=== PATIENT | male | born 1970 | race Caucasian/White ===

== ENCOUNTER 2020-04-27 09:58 | Outpatient (CLI) | payer OTHER, SELFPAY ==
--- NOTE | ~2020-04-27 | MR_ITS ---
EXAMINATION: MR shoulder LT wo con DATE: 04/27/2020 11:06 INDICATION: Left shoulder pain TECHNIQUE: Magnetic resonance imaging (MRI) of the left shoulder was performed without intravenous co ntrast. Sequences included axial PD-weighted FS FSE, coronal oblique PD-weighted FS FSE, coronal obli que T2-weighted FS FSE, sagittal PD-weighted FS FSE, and sagittal T1-weighted SE. COMPARISON: Left shoulder radiographs dated 03/05/2020 FINDINGS: Coracoacromial arch: The acromion undersurface is curved in morphology (type II). Small anterior subacromial spurs at the acromial insertion of the coracoacromial ligament. Moderate acromioclavicular osteoarthritis with sma ll inferiorly directed osteophytes. There is prominent heterotopic ossification along the thickened c oracoclavicular ligament suggesting sequela of old ligament sprain. Linear surgical scar with several foci of susceptibility artifact in the subcutaneous tissues overlying the anterior acromion. There a ppear to be a few small suture anchor sites at the acromion and lateral clavicle suggesting prior rep air of an acromioclavicular joint separation which would account for the chronic coracoclavicular lig ament injury. Rotator cuff: Mild to moderate supraspinatus and infraspinatus tendinopathy. Small full-thickness tear measuring 8 mm AP and 1 cm medial collateral scarring at the distal aspect of the posterior supraspinatus tendon with mild partial-thickness articular sided tear extending an additional 6 mm posteriorly along the f ootplate of the conjoined portion of the supraspinatus and infraspinatus tendons. There is a small ga nglion cyst tracking medially along a small longitudinal split tear involving the distal fibers of th e infraspinatus tendon. The ganglion cyst increases to approximately 2 cm medial collateral, 2 cm crackling press operator niocaudal and 4 mm in maximal thickness terminating near the level of the glenoid. A likely torn port ion of the articular side of the tendon appears reflected back 1.7 cm laterally within the ganglion c yst. The teres minor tendon is normal. Moderate subscapularis tendinopathy without discrete tear. Nor mal rotator cuff muscle bulk and signal. Biceps tendon, glenoid labrum and glenohumeral cartilage: Long head of the biceps tendon is normal. Posterior superior glenoid labrum appears small but without discrete tear. There is a small tear at the 1:00 position of the anterior glenoid labrum slightly ce phalad to a normal small sublabral foramen. Glenohumeral cartilage is normal. Fluid: Very small glenohumeral joint effusion with small amount of fluid extending into the long head biceps tendon sheath as well as into the subacromial/subdeltoid bursa through the full-thickness rotator cu ff tear. No loose osteochondral bodies. Bones: Normal marrow signal with no edema, fracture or abnormal marrow replacing process. Suggestion of an a dditional possible suture anchor tract at the cephalad aspect of the lateral rim of the intertubercul ar groove. Alternatively this could represent a small vascular channel. IMPRESSION: 1. Postoperative changes of likely repair of a chronic acromioclavicular joint separation with associ ated coracoclavicular ligament injury with prominent heterotopic ossification along the coracoclavicu lar ligament. 2. Mild to moderate rotator cuff tendinopathy with small full-thickness tear of the distal supraspina tus tendon and small partial-thickness articular sided tear of the more posterior infraspinatus tendo n. 3. Small tear at the 1:00 position of the anterosuperior glenoid labrum. Reviewed, dictated and finalized at location A. TENANCE APPRENTICE IMPRESSION: 1. Postoperative changes of likely repair of a chronic acromioclavicular joint separation with associated coracoclavicular li
== END 2020-04-27 09:59 | disposition home or self-care (01) ==
LOC: ANHIMG 10:09
PROVIDERS: PCP Internal Medicine; Visit Provider Orthopaedic Surgery
DX: M25.512 Pain in left shoulder (principal); S43.432D Superior glenoid labrum lesion of left shoulder, subsequent encounter; X58.XXXD Exposure to other specified factors, subsequent encounter
CPT/HCPCS: 73221

== ENCOUNTER → 2020-08-14 03:04 | Outpatient (CLI) | payer OTHER, SELFPAY ==
[2020-08-14 19:50] LABS: SARS-CoV-2 RNA PCR Negative
== END ==
PROVIDERS: PCP Internal Medicine; Visit Provider Orthopaedic Surgery
DX: Z01.812 Encounter for preprocedural laboratory examination (principal); Z20.822 Contact with and (suspected) exposure to COVID-19
CPT/HCPCS: C9803; U0003; U0005

== ENCOUNTER 2020-08-17 00:57 | Day surgery (SDC) | payer OTHER, SELFPAY ==
[2020-08-07 08:24] VITALS: BMI 29.2
--- NOTE | 2020-08-14 12:43 | WPDANESEPPF ---
Anes - Initial Pre Proc Eval Procedure: Operation Date: 08/17/20 11:00 Proposed Procedures p Left Open Rotator Cuff Repair, Distal Clavicle Excision - Geraldo Tejada MD Date/Time: 08/14/20 12:43 Surgeon: Geraldo Tejada MD Pre Op Diagnosis: left rotator cuff tear, ac arthritis Patient Data Age: 50 Gender: M Height: 1.93 m Weight: 109.09 kg Allergies Allergy/AdvReac Type Severity Reaction Status Date / Time Penicillins Allergy Mild Unknown- Verified 08/07/20 08:21 A CHILD Home Medications Medication Instructions Recorded Confirmed Type testosterone cypionate 100 mg/mL 100 mg IM 3XW 02/06/20 08/07/20 History intramuscular oil valacyclovir 500 mg tablet See Rx Instructions .ROUTE 02/25/20 08/07/20 Rx .COMPLEX #30 tablet acetaminophen [Tylenol Arthritis 1,300 mg PO Q8H PRN 08/07/20 08/07/20 History Pain] Patient hx anesthesia problems: none Family hx anesthesia problems: none PMFSH Past Medical History Medical History (Updated 08/14/20 @ 12:45 by Michael Denney MD) 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 BMI 30.0-30.9,adult Long-term current use of testosterone replacement therapy Low testosterone Overweight (BMI 25.0-29.9) Subacromial impingement of left shoulder Venereal herpes Surgical History Surgical History H/O shoulder surgery 1989 for left AC separation H/O spinal fusion Previous back surgery 2012 spinal fusion c6-c7 S/P lateral meniscal repair Naz, unknown Family History Family History Father , Age 66 Cardiovascular Heart disease Social History Social History Smoking packs per day: 1 Smoking cigarettes per day: 20.0 Years smoked: 10 Smoking pack-years: 10.00 Smoking status: Former smoker Tobacco type: cigarettes Additional smoking assessment comments: QUIT 2006 Alcohol intake: current Drinks per week: 10 Substance use: never Substance use type: does not use 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 Questions were solicited and answers provided to the satisfaction of the patient/family/POA.
--- NOTE | 2020-08-14 12:45 | WPDANESPNB ---
Anes - Peripheral Nerve Block Date/Time: 08/14/20 12:45 I have discussed with the patient/family/POA the placement of a peripheral nerve block for post-operative pain management, including associated risks, benefits, complications, and side effects. Alternative methods of post-operative analgesia were detailed. Questions were solicited and answers provided to the satisfaction of the patient/family/POA. Time-Out: A pre-procedural Time-Out was completed immediately before starting the procedure and confirmed: Patient Identification, Site, Procedure, Patient Position and the Availability of Requisite Equipment. Clinical Indications: Acute post-operative pain management requested by the operative surgeon. Nerve Block Insertion Note Anes-nerve block: supraclavicular left Patient position: supine Skin prep: chlorhexidine Needle: 22 gauge, stimulating, insulated echogenic needle. Needle length: 80 mm Technique: ultrasound (in plane) Injectate: bupivacaine 0.5% with epi 5 mcg/ml (20cc) Observations: tolerated well Complications: none Procedure start time:: 1150 Procedure end time:: 1155
[2020-08-17] VITALS (8 sets, daily range): BP systolic 125–159; BP diastolic 61–105; PULSE 65–80; RESP 8–18; TEMP 36.2–36.6; O2SAT 95–100
[2020-08-17] MEDS: LACTATED RINGERS 1,000 ML 30 ML IV CONT ×2 (09:58→13:54)
[2020-08-17] MEDS: ACETAMINOPHEN 500 MG TABLET 1000 MG PO (10:01)
[2020-08-17] MEDS: KETOROLAC 15 MG/ML VIAL (*BKC) IV PUSH (10:02)
--- NOTE | 2020-08-17 11:28 | WPDHPUPDATE1 ---
History and Physical Update Update Date/Time: 08/17/20 11:28 History and Physical has been reviewed, including an updated exam of the patient. There are NO changes in the patient's condition. Risks, benefits, and alternatives have been discussed and questions answered. Patient agrees to proceed with procedure.
[2020-08-17] MEDS: ceFAZolin 2 GM/D5W 50 ML 2 GM/50 ML BAG IVPB (11:58)
[2020-08-17] MEDS: BUPIVACAINE/EPINEPHRINE 0.25% 10 ML VIAL INFILTRATE (13:11)
--- NOTE | 2020-08-17 13:41 | W.PM.PROC2 ---
Procedure Note - Detailed Date of Procedure 08/17/20 Pre-op Diagnosis left rotator cuff tear, ac arthritis Post-op Diagnosis same Procedure Performed Left shoulder rotator cuff repair with distal clavicle excision Surgeon Geraldo Tejada MD Library Sales Consultant Laure Sanderson Anesthesia general and regional Indications See H and P Description of Procedure Patient was identified and proper site identified. In the preop holding area the anesthesia team performed a left upper extremity block. He was then taken to the operating room and transferred to the or table taking care to pad the torso and extremities. After general anesthetic induction and intubation, he was put in a semi beach chair position in the usual manner for a left shoulder procedure. His head was secured taking care to neither rotate nor extend the head and neck. The left upper extremity was prepped and draped free in usual sterile fashion. The subcutaneous tissue in the area of the incision was injected with 10 cc of 0.25% Marcaine and epinephrine solution. An oblique anterior incision was made extending from the AC joint distally in line with the fibers of the deltoid. Subcutaneous tissue was sharply dissected down to the deltoid fascia. The deltoid was dissected off the anterior portion of the acromion in the distal end of the clavicle. A 2 cm split was made at the junction between the anterior and middle thirds of the deltoid. Using the microsagittal saw the last 8 mm of clavicle removed. The saw was also used to perform the acromioplasty and then the undersurface of the acromion was rasped smooth. Bursa was debrided off the rotator cuff allowing for inspection. The supraspinatus had erosive type tear. The edges of this were freshened up and the tuberosity prepared for the repair. The the tendon was brought back together in a [id number] fashion with 2. Ethibond suture in the 2. Ethibond were also used to secure to greater tuberosity through bony tunnels. This gave a bianchi repair which was stable as the shoulder was taken through range of motion. The wound was irrigated with sterile NaCl solution. The deltoid was repaired back to the acromion with 2. Ethibond suture passed through bone and the remainder of the deltoid repair carried out with 2. Vicryl. Subcutaneous tissue was reapproximated with 2. Strata fix and then tissue adhesive used for the skin. Sterile dressing was applied. There were no known intraoperative complications, and perioperative antibiotics were administered. Estimated Blood Loss 30 Drains No Packing No Pathology none sent Complications No immediate complications Condition stable Disposition PACU
== END 2020-08-17 15:49 | disposition home or self-care (01) ==
PROVIDERS: PCP Internal Medicine; Visit Provider Orthopaedic Surgery
PROC: (CPT 23420; principal; 2020-08-17 11:00)
DX: M75.102 Unspecified rotator cuff tear or rupture of left shoulder, not specified as traumatic (principal); M19.011 Primary osteoarthritis, right shoulder; Z87.891 Personal history of nicotine dependence; Z79.890 Hormone replacement therapy; G89.18 Other acute postprocedural pain
CPT/HCPCS: 64415; 23412; 23120; A4565; A9270; C9803; J0690; J1885; J2250; J3010; J7120; U0003; U0005

== ENCOUNTER 2020-11-04 08:15 | Outpatient (RCR) | payer OTHER, SELFPAY ==
[2020-08-19 12:32] VITALS: BP_SYST 30
--- NOTE | 2020-08-19 13:49 | PTOPEVAL ---
Thank you for referring Tadeo See to [facility].? The patient is scheduled to be seen for therapy? 2 x/week for 10 weeks. Please review, sign, date and return this plan of care LAITH. I agree with and certify that the following plan of care is medically necessary. 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 Subjective Information He reports he has been having Query Text:As Reported By Patient/ issues with left shoulder for Family years. He reached the point where he could not raise the left UE overhead. Reports increased pain and difficulty sleeping since surgery. States he is not able to sleep in the bed due to pain. He requires assistance with ADL's. He is wearing the sling only when going outside of the house. He stopped lifting weights in due to shoulder limitations. Pain Assessment Self Report Pain Assessment Left Shoulder(s) Reported Pain Level 7 Pain Description Aching,Pulling,Tender on Palpation Pain Frequency Acute,Continuous Lowest Pain Intensity 7 Greatest Pain Intensity 10 Pain Aggravating Factors ADL's,Exercise/Activity, Procedure or Surgery Pain Behaviors None Upper Extremity Range of Motion Scapular/ Shoulder Range of Motion Left Shoulder Flexion - Passive 20 Shoulder Abduction - Passive 30 Shoulder Medial Rotation - Passive 50 Shoulder Lateral Rotation - Passive 0 Scapular/Shoulder Range of Motion Edema,Pain,Soft Tissue Limitations Restriction Scapular/Shoulder Range of Motion rotation measured with GH at Comments neutral Elbow/Forearm Range of Motion Left Elbow Flexion - Active 115 Elbow Extension - Active -18 Elbow/Forearm Range of Motion Edema,Soft Tissue Restriction
[2020-09-23 13:07] VITALS: BP_SYST 150
--- NOTE | 2020-10-29 11:47 | PTOPEVAL ---
Physical therapy progress note Thank you for referring Tadeo See to [facility].? Tadeo has attended 19 therapy visits to address UE limitations from surgery. He demonstrates improved UE motion, strength and function. He would benefit from additional skilled therapy services to progress and finalize HEP for strengthening to allow him to return to all normal work and daily task. The patient is scheduled to be seen for therapy?1x/week for 4 weeks. Please review, sign, date and return this plan of care LAITH. I agree with and certify that the following plan of care is medically necessary. 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 Subjective Information He is performing his HEP 1-2x/ Query Text:As Reported By Patient/ day. Denies any significant Family problems with sleeping with stiffness in the morning vs pain. He has returned to work, but mainly desk work vs lifting. He has always had difficulty reaching behind his back due to tightness. Pain Assessment Self Report Self Report Pain Level 0 Pain Score Pain Score 0: Self Report Upper Extremity Range of Motion Scapular/ Shoulder Range of Motion Left Shoulder Flexion - Active 160 Shoulder Flexion - Passive 165 Shoulder Extension - Active 52 Shoulder Abduction - Active 160 Shoulder Medial Rotation - Active 73 Shoulder Medial Rotation - Active L2t:Reach Behind the Back Shoulder Lateral Rotation - Active 70 Shoulder Lateral Rotation - Active C7:Reach Behind the Head Scapular/Shoulder Range of Motion Soft Tissue Restriction Limitations Scapular/Shoulder Range of Motion rotation measured with GH Comments abducted 90 dg Elbow/Forearm Range of Motion Left Elbow Flexion - Active 130 Elbow Extension - Active -10 Elbow/Forearm Range of Motion Soft Tissue Restriction Limitations Elbow/Forearm Range of Motion Comments tightness of bicep muscle Upper Extremity Muscle Strength Testing Scapular/Shoulder Left Scapular Retraction - Middle Trapezius 4- Good - Scapular Retraction - Lower Trapezius 3- Fair - Shoulder Flexion Strength 4 Good Shoulder Extension Strength 5 Normal Shoulder Abduction Strength 5 Normal Shoulder Medial Rotation Strength 5 Normal Shoulder Lateral Rotation Strength 4- Good - Elbow/Forearm Right Elbow Flexion Strength 5 Normal Elbow Extension Strength 5 Normal Forearm Pronation Strength 5 No
--- NOTE | 2020-11-11 07:06 | PCPTNOTE ---
Patient called & cancelled scheduled appointment this date due to had surgery. No additional appointments scheduled at this time.
--- NOTE | 2021-01-08 15:39 | PCPTNOTE ---
Admitting Provider: Attending Provider: Geraldo Tejada MD Patient:Tadeo See Date of :1970 Discharge Summary Patient has not returned for any further treatments since 11/04/2020, therefore he will be discharged at this time. Patient?s initial visit was on 08/19/2020 12:30 and he had a total of 20 visits. The goals have been met at this time. Thank you for referring this patient to [facility]. Please review, sign, date and return this discharge summary LAITH. I have been updated about the patient's current status and I agree with discharge from the above service at this time. Referring Physician Date
== END 2020-11-17 23:59 | disposition home or self-care (01) ==
LOC: ANHPT 08:15
PROVIDERS: PCP Internal Medicine; Visit Provider Orthopaedic Surgery
DX: Z47.89 Encounter for other orthopedic aftercare (principal)
CPT/HCPCS: 97014; 97110; 97140; 97162; G0283

== ENCOUNTER 2020-11-06 18:12 | Observation (INO) | payer OTHER, SELFPAY ==
--- NOTE | ~2020-11-06 | CT_ITS ---
EXAMINATION: CT abdomen pelvis w con DATE: 11/06/2020 19:15 INDICATION: Mid abdominal pain. TECHNIQUE: Computed tomography (CT) of the abdomen and pelvis was performed with 100 mL Omnipaque 350 intravenous contrast. Automated exposure control and iterative reconstruction technique were employe d. The dose-length product was 818.80 mGy-cm. COMPARISON: None. FINDINGS: The visualized portions of the lung bases demonstrate mild atelectasis. No pleural effusion . The heart size is normal. No pericardial effusion. The liver and gallbladder are normal. Calcificat ions in the spleen are consistent with old granulomatous disease. The pancreas, adrenal glands, and l eft kidney are normal. There is a 9 mm cyst in right kidney. There is an appendicolith in the appendi x, which is fluid-filled and dilated to 1.6 cm with adjacent fat stranding, consistent with appendici tis. There are no pathologically enlarged lymph nodes. There is prominent fat in the left inguinal ca nal that may be a hernia. There is no free intraperitoneal fluid. There is moderate lumbar spondylosi s. IMPRESSION: 1. Acute appendicitis. I called this result to Dr. Gomez. Reviewed, dictated and finalized at location A.
[2020-11-06 18:19] VITALS: BP 169/102; PULSE 67; RESP 16; TEMP 36.1; O2SAT 100
--- NOTE | 2020-11-06 18:24 | ED.ABDPAIN ---
HPI - Abdominal Pain General Chief Complaint: Abdominal Pain Stated Complaint: ABD Pain Time Seen by Provider: 11/06/20 18:16 Source: RN notes reviewed History of Present Illness HPI narrative: Patient presents emergency department from home for dental pain. Patient states that pain began approximately noon today. States he had eaten [employer] pizza for lunch and following this began to have an upset stomach so that time he tried to have a bowel movement was unsuccessful as had increasing pain described as a cramping in his lower abdomen he states is associated with nausea he denies any fevers or chills vomiting diarrhea or any other symptoms states he not taking medication for pain at home Related Data Home Medications Medication Instructions Recorded Confirmed testosterone cypionate 100 mg/mL 100 mg IM 3XW 02/06/20 09/29/20 intramuscular oil Allergies Allergy/AdvReac Type Severity Reaction Status Date / Time Penicillins Allergy Mild Unknown- Verified 08/17/20 10:32 A CHILD Review of Systems Review of Systems: Gen.: Denies fevers or chills ENT: Denies congestion Respiratory: Denies shortness of breath or cough CV: Denies chest pain or palpitations GI: Dsee HPI denies burning, urgency, frequency or hematuria Musculoskeletal: Denies back pain or muscle pain Neuro: Denies numbness, tingling, weakness or focal weakness Skin: Denies rash Except as documented, all other systems reviewed and negative [facility] Past Medical History Medical History 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 BMI 30.0-30.9,adult Long-term current use of testosterone replacement therapy Low testosterone Overweight (BMI 25.0-29.9) Subacromial impingement of left shoulder Venereal herpes Surgical History Surgical History H/O shoulder surgery 1989 for left AC separation H/O spinal fusion Left rotator cuff tear Left rotator cuff repair with distal clavicle excision August 17, 2020 Previous back surgery 2012 spinal fusion c6-c7 S/P lateral meniscal repair Naz, unknown Family History Family History Father , Age 66 Cardiovascular Heart disease Social History Social History Smoking packs per day: 1 Smoking cigarettes per day: 20.0 Years smoked: 10 Smoking pack-years: 10.00 Smoking status: Former smoker Tobacco type: cigarettes Additional smoking assessment comments: QUIT 2006 Alcohol intake: current Drinks per week: 10 Alcohol use details: 10 beers weekly Substance use: never Substance use type: does not use 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 No clubbing, cyanosis or edema. NEURO: Awake and alert. Following commands, speech normal, no focal deficits SKIN:: Warm, dry. Normal Color PSYCHIATRIC: Normal affect/mood Course Course Emergency Course: Discussed with Dr. Byrnes presentation work-up agrees with admission at this time Discussed with patient and family results of workup and diagnosis. Discussed need for admission. Patient and family understand and agree to current treatment plan Vital Signs Vital signs: Vital Signs Temperature 97.0 F L 11/06/20 18
[2020-11-06 18:45] LABS: Basophils Percent Auto 0.3 % (0.2-1.2); Hematocrit 54.2 % (42.0-52.0); Hemoglobin 18.4 g/dL (14.0-18.0); Immature Granulocyte Absolute 0.07 K/mm3 (0.00-0.031); Immature Granulocyte Percent A 0.5 % (0-0.5); Lymphocytes Absolute Auto 1.46 K/mm3 (0.9-3.2); Lymphocytes Percent Auto 9.6 % (18.3-44.2); Mean Corpuscular HGB Conc 33.9 g/dl (32-36); Mean Corpuscular Hemoglobin 32.7 pg (26-34); Mean Corpuscular Volume 96.3 fl (80-100); Mean Platelet Volume 10.8 fl (7.4-10.4); Monocytes Absolute Auto 0.8 K/mm3 (0.1-0.6); Neutrophils Absolute Auto 12.8 K/mm3 (1.3-6.7); Neutrophils Percent Auto 84.6 % (45.5-73.1); Platelet Count Result 169 k/mm3 (150-375); Red Blood Count 5.63 M/mm3 (4.6-6.20); Red Cell Distribution Width 12.5 % (11.5-14.5); White Blood Count 15.1 K/mm3 (4.5-10.0)
[2020-11-06] MEDS: KETOROLAC 30 MG/ML VIAL (*BKC) IV PUSH (18:53)
[2020-11-06] MEDS: ONDANSETRON INJ 4 MG/2 ML VIAL IV PUSH (18:54)
[2020-11-06] MEDS: SODIUM CHLORIDE 0.9% IV 1,000 ML 999 ML IV CONT (18:54)
[2020-11-06 18:57] LABS: Alanine Aminotransferase 62 U/L (4-50); Albumin Level 4.6 g/dL (3.5-5.1); Alkaline Phosphatase 80 U/L (38-126); Anion Gap 8 mmol/L (8-16); Aspartate Amino Transferase 45 U/L (17-59); Bilirubin,Total 0.7 mg/dL (0.2-1.3); Blood Urea Nitrogen 11 mg/dL (9-20); Calcium 9.7 mg/dL (8.4-10.2); Carbon Dioxide 26 mmol/L (22-30); Chloride 99 mmol/L (98-107); Estimated CRCL calculation 118 ml/min; Estimated Glomerular Filt Rate > 60; Glucose 133 mg/dL (65-110); Lipase 63 U/L (23-300); Potassium 4.2 mmol/L (3.4-5.0); Sodium 133 mmol/L (137-145)
[2020-11-06 19:11] LABS: Add Urine Microscopic? YES; Appearance Urine Clear (Clear); Bilirubin Urine Negative (Negative); Blood Urine Negative (Negative); Color Urine Yellow (Yellow); Glucose Urine UA 1+ mg/dL (Negative); Ketones Urine 1+ mg/dL (Negative); Leukocyte Esterase Ur Negative LEU/UL (Negative); Mucus Urine Rare /lpf; Nitrate Urine Negative (Negative); Protein Urine 1+ mg/dL (Negative); RBC Urine 0-2 /hpf (0-2); Specific Grav Ur 1.023 (1.001-1.035); Urobilinogen Urine Negative mg/dL (<2.0); WBC Urine 0-3 /hpf
--- NOTE | 2020-11-06 20:24 | WPDANESEPP ---
Anes - Eval Pre Procedure Procedure: Laparoscopic appendectomy Date/Time: 11/06/20 20:24 Surgeon: Soniya Preop Diagnosis: Acute appendicitis Pre Op Diagnosis: ABD Pain Patient Data Age: 50 Gender: M Height: 1.93 m Weight: 113.6 kg Last Vital Signs Temp 97.0 F L 11/06/20 18:19 Pulse 67 11/06/20 18:19 Resp 16 11/06/20 18:19 BP 169/102 H 11/06/20 18:19 Pulse Ox 100 11/06/20 18:19 Allergies Allergy/AdvReac Type Severity Reaction Status Date / Time Penicillins Allergy Mild Unknown- Verified 08/17/20 10:32 A CHILD Home Medications Medication Instructions Recorded Confirmed Type testosterone cypionate 100 mg/mL 100 mg IM 3XW 02/06/20 09/29/20 History intramuscular oil valacyclovir 500 mg tablet See Rx Instructions .ROUTE 08/21/20 09/29/20 Rx .COMPLEX #30 tablet Laboratory Tests 11/06/20 11/06/20 11/06/20 18:25 18:25 18:25 WBC 15.1 K/mm3 H K/mm3 (4.5-10.0) RBC 5.63 M/mm3 M/mm3 (4.6-6.20) Hgb 18.4 g/dL H g/dL (14.0-18.0) Hct 54.2 % H % (42.0-52.0) MCV 96.3 fl fl (80-100) MCH 32.7 pg pg (26-34) MCHC 33.9 g/dl g/dl (32-36) RDW 12.5 % % (11.5-14.5) Plt Count 169 k/mm3 k/mm3 (150-375) MPV 10.8 fl H fl (7.4-10.4) Immature Gran % (Auto) 0.5 % % (0-0.5) Neut % (Auto) 84.6 % H % (45.5-73.1) Lymph % (Auto) 9.6 % L % (18.3-44.2) [place] % (Auto) 5.0 % % (2.6-8.5) Eos % (Auto) 0.0 % % (0-4.4) Baso % (Auto) 0.3 % % (0.2-1.2) Lymph # (Auto) 1.46 K/mm3 K/mm3 (0.9-3.2) Tyler # (Auto) 0.8 K/mm3 H K/mm3 (0.1-0.6) Eos # (Auto) 0.0 K/mm3 K/mm3 (0-0.3) Baso # (Auto) 0.0 K/mm3 K/mm3 (0.0-0.1) Abs Immat Gran (auto) 0.07 K/mm3 H K/mm3 (0.00-0.031) Absolute Neuts (auto) 12.8 K/mm3 H K/mm3 (1.3-6.7) Absolute Nucleated RBC 0.0 K/mm3 K/mm3 (0.0-0.012) Nucleated RBC % 0.0 % % (0.0-0.2) Sodium 133 mmol/L L mmol/L (137-145) Potassium 4.2 mmol/L mmol/L (3.4-5.0) Chloride 99 mmol/L mmol/L (98-107) Carbon Dioxide 26 mmol/L mmol/L (22-30) Anion Gap 8 mmol/L mmol/L (8-16) BUN 11 mg/dL mg/dL (9-20) Creatinine 0.90 mg/dL mg/dL (0.7-1.3) Estim Creat Clear Calc 118 ml/min ml/min Estimated GFR > 60 (59 - ) Glucose 133 mg/dL H mg/dL (65-110) Calcium 9.7 mg/dL mg/dL (8.4-10.2) Total Bilirubin 0.7 mg/dL mg/dL (0.2-1.3) AST 45 U/L U/L (17-59) ALT 62 U/L H U/L (4-50) Alkaline Phosphatase 80 U/L U/L (38-126) Total Protein 8.0 g/dL g/dL (6.3-8.2) Albumin 4.6 g/dL g/dL (3.5-5.1) Lipase 63 U/L U/L (23-300) Urine Color Yellow (Yellow) Urine Appearance Clear (Clear) Urine pH 5.0 (5.0-9.0) Ur Specific [place] 1.023 (1.001-1.035) Urine Protein 1+ mg/dL H mg/dL (Negative) Urine Glucose (UA) 1+ mg/dL H mg/dL (Negative) Urine Ketones 1+ mg/dL H mg/dL (Negative) Ur Blood (Man) Negative (Negative) Urine Nitrate Negative (Negative) Urine Bilirubin Negative (Negative) Urine Urobilinogen Negative mg/dL mg/dL (<2.0) Leukocyte Esterase Rfl Negative MARIALUISA/UL MARIALUISA/UL (Negative) Urine RBC 0-2 /hpf /hpf (0-2) Urine WBC 0-3 /hpf /hpf Urine Mucus Rare /lpf /lpf Patient hx anesthesia problems: none Family hx anesthesia problems: none [facility] Past Medical History Medical History (Updated 11/06/20 @ 20:27 by Jaylen Dumont CRNA) 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 BMI 30.0-30.9,adult BPV (benign positional vertigo) H/O ETOH abus
[2020-11-06 21:25] VITALS: BP 152/87; PULSE 84; RESP 16; TEMP 37.1; O2SAT 100; BMI 29.9
[2020-11-06 21:45] VITALS: BMI 29.9
[2020-11-06] MEDS: metroNIDAZOLE 500 MG/ISO 100ML 500 MG/100 ML BAG 100 MG IVPB (22:20)
[2020-11-06] MEDS: SODIUM CHLORIDE 0.9% IV 1,000 ML 125 ML IV CONT (22:20)
[2020-11-07] VITALS (9 sets, daily range): BP systolic 121–156; BP diastolic 68–90; PULSE 65–80; RESP 12–18; TEMP 36.2–37.2; O2SAT 92–100
[2020-11-07] MEDS: MORPHINE SULFATE (*CRX) 4 MG/ML INJ IV PUSH (02:41)
[2020-11-07] MEDS: metroNIDAZOLE 500 MG/ISO 100ML 500 MG/100 ML BAG 100 MG IVPB (05:05)
[2020-11-07 06:49] LABS: Basophils Percent Auto 0.3 % (0.2-1.2); Eosinophils Absolute Auto 0.1 K/mm3 (0-0.3); Eosinophils Percent Auto 0.7 % (0-4.4); Hematocrit 50.4 % (42.0-52.0); Immature Granulocyte Absolute 0.07 K/mm3 (0.00-0.031); Immature Granulocyte Percent A 0.6 % (0-0.5); Lymphocytes Absolute Auto 2.16 K/mm3 (0.9-3.2); Lymphocytes Percent Auto 17.3 % (18.3-44.2); Mean Corpuscular HGB Conc 33.7 g/dl (32-36); Mean Corpuscular Hemoglobin 32.6 pg (26-34); Mean Corpuscular Volume 96.6 fl (80-100); Mean Platelet Volume 11.4 fl (7.4-10.4); Monocytes Absolute Auto 1.2 K/mm3 (0.1-0.6); Monocytes Percent Auto 9.6 % (2.6-8.5); Neutrophils Absolute Auto 8.9 K/mm3 (1.3-6.7); Neutrophils Percent Auto 71.5 % (45.5-73.1); Platelet Count Result 155 k/mm3 (150-375); Red Blood Count 5.22 M/mm3 (4.6-6.20); Red Cell Distribution Width 12.8 % (11.5-14.5); White Blood Count 12.5 K/mm3 (4.5-10.0)
[2020-11-07 07:14] LABS: Anion Gap 8 mmol/L (8-16); Blood Urea Nitrogen 11 mg/dL (9-20); Calcium 8.8 mg/dL (8.4-10.2); Carbon Dioxide 25 mmol/L (22-30); Chloride 102 mmol/L (98-107); Estimated CRCL calculation 105 ml/min; Estimated Glomerular Filt Rate > 60; Glucose 109 mg/dL (65-110); Potassium 3.9 mmol/L (3.4-5.0); Sodium 135 mmol/L (137-145)
--- NOTE | 2020-11-07 07:15 | WPDHPUPDATE1 ---
History and Physical Update Update Date/Time: 11/07/20 07:15 History and Physical has been reviewed, including an updated exam of the patient. There are NO changes in the patient's condition. Risks, benefits, and alternatives have been discussed and questions answered. Patient agrees to proceed with procedure.
--- NOTE | 2020-11-07 07:15 | PM.IMHP ---
H&P: HPI History of Present Illness Date/Time: 11/07/20 07:15 Chief Complaint: Right lower quadrant pain Narrative: This is a 50-year-old man who presented to the emergency department overnight with right lower quadrant pain that started around noon yesterday. He has never had pain like this before. He began feeling nauseated and was also feeling chills. In the emergency department he was noted to have an elevated white blood count and CT showed evidence of acute appendicitis. He was started on broad-spectrum IV antibiotics and admitted for further treatment. Review of Systems Review of Systems: All systems reviewed & are unremarkable except as noted in HPI and below Eyes: Eyes: Denies change in vision ENT: Denies hearing loss, Denies neck pain and Denies sore throat Cardiovascular: Cardiovascular: Denies chest pain and Denies dyspnea Respiratory: Respiratory: Denies cough, Denies dyspnea and Denies wheezing Genitourinary: Genitourinary: Denies hematuria and Denies dysuria Musculoskeletal: Musculoskeletal: Denies arthralgias, Denies joint swelling and Denies neck pain Allergic/Immunologic: Allergic/Immunologic: Denies wheezing PMFSH Past Medical History Medical History 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 BMI 30.0-30.9,adult BPV (benign positional vertigo) H/O ETOH abuse History of smoking Inflamed sebaceous cyst Long-term current use of testosterone replacement therapy Low testosterone Overweight (BMI 25.0-29.9) Subacromial impingement of left shoulder Venereal herpes Surgical History Surgical History H/O shoulder surgery 1989 for left AC separation H/O spinal fusion Left rotator cuff tear Left rotator cuff repair with distal clavicle excision August 17, 2020 Previous back surgery 2012 spinal fusion c6-c7 S/P lateral meniscal repair 2015, unknown Family History Family History Father , Age 66 Cardiovascular Heart disease Social History Social History Smoking packs per day: 1 Smoking cigarettes per day: 20.0 Years smoked: 10 Smoking pack-years: 10.00 Smoking status: Former smoker Tobacco type: cigarettes Additional smoking assessment comments: QUIT 2006 Alcohol intake: current Drinks per week: 14 Alcohol use details: 10 beers weekly Substance use: current Substance use type: does not use 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[employer]) Gender identity (if verbalized by the patient): Male Spiritual care concerns: No Meds Home Medications and Allergies Home Medications Medication Instructions Recorded Confirmed Type testosterone cypionate 100 mg/mL 100 mg IM 3XW 02/06/20 11/06/20 History intramuscular oil valacyclovir 500 mg PO DAILY 11/06/20 11/06/20 History Allergies Allergy/AdvReac Type Severity Reaction Status Date / Time Penicillins Allergy Mild Unknown- Verified 08/17/20 10:32 A CHILD Vital Signs Vital Signs - 24 hr 11/06/20 18:19 11/06/20 21:25 11/07/20 05:08 Temperature 36.1 C L 37.1 C 37.2 C Pulse Rate 67 84 80 Respiratory Rate 16 16 18 Blood Pressure 169/102 H 152/87 H 156/90 H Pulse Oximetry 100 100 100 Exam Const: General: alert; No acute distress Orientation/consciousness: patient oriented x3 Limitations: no limitations HENMT: Head: normocephalic and atraumatic Ears: hearing grossly normal bilaterally General nose exam: Normal external nose present and Normal nares present Mouth: Yes Normal oral and palatal mucosa present and Yes moist mucous membranes Eyes: General: appearance normal, both eyes and all related structures Conjunctivae: conjunctivae normal Sclera: sclerae normal Pupils: Equal, roun
--- NOTE | 2020-11-07 07:27 | WPDANESEPPF ---
Anes - Initial Pre Proc Eval Procedure: Operation Date: 11/07/20 07:30 Proposed Procedures p Laparoscopic Appendectomy - Antonio Byrnes DO Date/Time: 11/07/20 07:27 Surgeon: Antonio Byrnes DO Pre Op Diagnosis: Acute Appendicitis Patient Data Age: 50 Gender: M Height: 1.93 m Weight: 111.7 kg Last Vital Signs Temp 37.2 C 11/07/20 05:08 Pulse 80 11/07/20 05:08 Resp 18 11/07/20 05:08 BP 156/90 H 11/07/20 05:08 Pulse Ox 100 11/07/20 05:08 Allergies Allergy/AdvReac Type Severity Reaction Status Date / Time Penicillins Allergy Mild Unknown- Verified 08/17/20 10:32 A CHILD Home Medications Medication Instructions Recorded Confirmed Type testosterone cypionate 100 mg/mL 100 mg IM 3XW 02/06/20 11/06/20 History intramuscular oil valacyclovir 500 mg PO DAILY 11/06/20 11/06/20 History Laboratory Tests 11/06/20 11/06/20 11/06/20 18:25 18:25 18:25 WBC 15.1 K/mm3 H K/mm3 (4.5-10.0) RBC 5.63 M/mm3 M/mm3 (4.6-6.20) Hgb 18.4 g/dL H g/dL (14.0-18.0) Hct 54.2 % H % (42.0-52.0) MCV 96.3 fl fl (80-100) MCH 32.7 pg pg (26-34) MCHC 33.9 g/dl g/dl (32-36) RDW 12.5 % % (11.5-14.5) Plt Count 169 k/mm3 k/mm3 (150-375) MPV 10.8 fl H fl (7.4-10.4) Immature Gran % (Auto) 0.5 % % (0-0.5) Neut % (Auto) 84.6 % H % (45.5-73.1) Lymph % (Auto) 9.6 % L % (18.3-44.2) Powell % (Auto) 5.0 % % (2.6-8.5) Eos % (Auto) 0.0 % % (0-4.4) Baso % (Auto) 0.3 % % (0.2-1.2) Lymph # (Auto) 1.46 K/mm3 K/mm3 (0.9-3.2) Powell # (Auto) 0.8 K/mm3 H K/mm3 (0.1-0.6) Eos # (Auto) 0.0 K/mm3 K/mm3 (0-0.3) Baso # (Auto) 0.0 K/mm3 K/mm3 (0.0-0.1) Abs Immat Gran (auto) 0.07 K/mm3 H K/mm3 (0.00-0.031) Absolute Neuts (auto) 12.8 K/mm3 H K/mm3 (1.3-6.7) Absolute Nucleated RBC 0.0 K/mm3 K/mm3 (0.0-0.012) Nucleated RBC % 0.0 % % (0.0-0.2) Sodium 133 mmol/L L mmol/L (137-145) Potassium 4.2 mmol/L mmol/L (3.4-5.0) Chloride 99 mmol/L mmol/L (98-107) Carbon Dioxide 26 mmol/L mmol/L (22-30) Anion Gap 8 mmol/L mmol/L (8-16) BUN 11 mg/dL mg/dL (9-20) Creatinine 0.90 mg/dL mg/dL (0.7-1.3) Estim Creat Clear Calc 118 ml/min ml/min Estimated GFR > 60 (59 - ) Glucose 133 mg/dL H mg/dL (65-110) Calcium 9.7 mg/dL mg/dL (8.4-10.2) Total Bilirubin 0.7 mg/dL mg/dL (0.2-1.3) AST 45 U/L U/L (17-59) ALT 62 U/L H U/L (4-50) Alkaline Phosphatase 80 U/L U/L (38-126) Total Protein 8.0 g/dL g/dL (6.3-8.2) Albumin 4.6 g/dL g/dL (3.5-5.1) Lipase 63 U/L U/L (23-300) Urine Color Yellow (Yellow) Urine Appearance Clear (Clear) Urine pH 5.0 (5.0-9.0) Ur Specific [place] 1.023 (1.001-1.035) Urine Protein 1+ mg/dL H mg/dL (Negative) Urine Glucose (UA) 1+ mg/dL H mg/dL (Negative) Urine Ketones 1+ mg/dL H mg/dL (Negative) Ur Blood (Man) Negative (Negative) Urine Nitrate Negative (Negative) Urine Bilirubin Negative (Negative) Urine Urobilinogen Negative mg/dL mg/dL (<2.0) Leukocyte Esterase Rfl Negative MARIALUISA/UL MARIALUISA/UL (Negative) Urine RBC 0-2 /hpf /hpf (0-2) Urine WBC 0-3 /hpf /hpf Urine Mucus Rare /lpf /lpf 11/07/20 11/07/20 05:29 05:29 WBC 12.5 K/mm3 H K/mm3 (4.5-10.0) RBC 5.22 M/mm3 M/mm3 (4.6-6.20) Hgb 17.0 g/dL g/dL (14.0-18.0) Hct 50.4 % % (42.0-52.0) MCV 96.6 fl fl (80-100) MCH 32.6 pg pg (26-34) MCHC 33.7 g/dl g/dl (32-3
[2020-11-07] MEDS: LACTATED RINGERS 1,000 ML 30 ML IV CONT ×2 (07:45→08:24)
[2020-11-07] MEDS: BUPIVACAINE/EPINEPHRINE 0.25% 50 ML VIAL 30 ML INFILTRATE (08:05)
--- NOTE | 2020-11-07 08:42 | W.PM.PROC2 ---
Procedure Note - Detailed Date of Procedure 11/07/20 Pre-op Diagnosis Acute Appendicitis Post-op Diagnosis same Procedure Performed Laparoscopic appendectomy Surgeon Antonio Byrnes, DO Anesthesia general and local (0.25% bupivacaine with epinephrine) Indications This is a 50-year-old man who presented to the emergency department with right lower quadrant abdominal pain. CT showed evidence of acute appendicitis. He was admitted to the hospital and now presents for urgent laparoscopic appendectomy. Findings Laparoscopic appendectomy was performed. The appendix appeared indurated and dilated, but there was no evidence of perforation or abscess. The remainder of the abdomen appeared grossly normal. The appendix was removed and sent to the lab for pathology. Patient did have a small umbilical hernia and the initial 12 mm trocar was placed directly through this hernia. This was closed on the way out using an 0 Vicryl [id number] suture. Description of Procedure Procedure as well as risks, benefits, and alternatives were explained to the patient. The patient agreed to proceed. Written consent was obtained and placed in chart prior to procedure. The patient was brought back to surgical suite. He was placed supine on operating table. Time-out was done to confirm the patient and procedure. The patient was then intubated by the Anesthesia Department. His abdomen was prepped and draped in sterile fashion using chlorhexidine prep. A 12 mm incision was made at the inferior portion of the umbilicus. Blunt dissection was carried out down to the linea alba. The linea alba was then incised using a 15 blade scalpel. Then bluntly entered into the peritoneal cavity. A 12 mm trocar was then inserted, and carbon dioxide insufflation was used to create a pneumoperitoneum. The camera was inserted and the abdomen was inspected. No immediate abnormalities were identified. The patient was then placed in slight Trendelenburg position and rotated to the left. A 5 mm incision was made in the suprapubic region in midline and a 5 mm trocar was inserted under direct visualization. A 5 mm incision was made in the left lower quadrant and a 5 mm trocar was inserted under direct visualization. The right lower quadrant was carefully inspected. The cecum was identified and then this was traced back to the appendix. The appendix was identified and grasped at the mesoappendix and lifted anteriorly. Careful blunt dissection was carried out at the base of the appendix through the mesoappendix using a [place] grasper. An Endo-ROMEO 45 mm blue load stapler was then advanced across the base of the appendix and clamped and fired. A white reload was then clamped across the mesoappendix and fired. This freed up our appendix completely. It was then placed in an EndoCatch bag and removed through the umbilical port. The staple lines were then inspected. Hemostasis appeared adequate and the staple lines appeared secure. The area was then irrigated with sterile saline. The pelvis was then carefully inspected and irrigated with sterile saline as well and the remainder of the abdomen was carefully inspected. The patient was then flattened out in bed. One final inspection was made around the abdominal cavity and no other abnormalities were seen. The ports were then removed under direct visualization. The camera was removed and the pneumoperitoneum was released. The fascia of the umbilical incision was reapproximated using an 0 Vicryl [id number]-uh-[id number] suture. 0.5% bupivacaine with epinephrine was infiltrated locally around each of the incisions. The skin of the incisions was then approximated using 4-0 Monocryl subcuticular suture and Exofin glue was applied on top. The patient was then awakened from anesthesia, extubated, and transferred to Recovery. Estimated Blood Loss 5 Urine Output 300 Pathology yes (Appendix) Complications No immediate complications Condition stable Disposi
[2020-11-07] MEDS: fentaNYL CITRATE INJ (*CRX) 100 MCG/2 ML VIAL 25 MCG IV PUSH (09:36)
[2020-11-07] MEDS: LACTATED RINGERS 1,000 ML 100 ML IV CONT (10:33)
[2020-11-07] MEDS: HYDROcodone/acetaminophen (*CRX) 5-325 MG TABLET 1 TAB PO (10:35)
--- NOTE | 2020-11-07 12:31 | PM.DS ---
DS: Admitting Diagnosis Discharge Date 11/07/20 Admitting Diagnosis acute appendicitis DS: Discharge Diagnosis Discharge Diagnosis (1) Acute appendicitis: Qualifiers: Acute appendicitis type: with localized peritonitis Appendicitis abscess presence: unspecified whether abscess present Appendicitis gangrene presence: unspecified whether gangrene present Appendicitis perforation presence: unspecified whether perforation present Qualified Code(s): K35.30 - Acute appendicitis with localized peritonitis, without perforation or gangrene Code(s): K35.80 - Unspecified acute appendicitis Status: Acute DS: Summary Hospital Course Reason for hospitalization: acute appendicitis Hospital Course: this is a 50-year-old man who presented to the emergency department on 11/06/2020 with abdominal pain. He was noted to have tenderness in the right lower quadrant and had a slightly elevated white blood count. CT of his abdomen and pelvis showed evidence of acute appendicitis. He was then admitted to the hospital for further treatment and was placed on broad-spectrum IV antibiotics. He underwent laparoscopic appendectomy on 11/07/2020. He was returned to the surgical floor postoperatively where his diet and activity were advanced as tolerated. Later on that day he was tolerating a regular diet and his pain was well controlled and he remained hemodynamically stable. He was discharged on 11/07/2020. Status at Discharge Functional status at discharge: independent ambulation Overall status at discharge: patient is progressing back to baseline Time Spent with Patient Time attestation: Total time spent providing and/or coordinating discharge services: Time spent: Less than 30 minutes Exam Narrative: Unchanged from preoperative exam except for surgical changes DS: Data Data Completed and Pending Completed studies during hospitalization: Pending at discharge 11/07/20 08:06 Surgical [PTH] Routine Imaging Radiologist's impression: ITS Impressions Abdomen/Pelvis CT 11/06/20 19:19 IMPRESSION: 1. Acute appendicitis. I called this result to Dr. Gomez. Discharge Plan Discharge Attending physician on discharge: Antonio Qureshi Consulting providers: Edgardo Cruz V. Discharging Clinician: Antonio Qureshi Anticipated Discharge Date/Time: 11/07/20 12:00 Patient Disposition: Home, Self-Care Activity: other - see discharge instructions Diet: regular Wound Care Instructions: follow printed instructions Discharge Instructions: DISCHARGE INSTRUCTION SHEET FOR HERNIA, GALLBLADDER AND APPENDIX SURGERIES DR. QURESHI PATIENT TO TAKE HOME 1. May shower in 24 hours, no soaking in bath x 2weeks. 2. Call office for: Wound increasingly painful or bleeding Vomiting Fever of greater than 101 degrees 3. If no bowel movement for three days, take 1 oz. (30 ml) Milk of Magnesia or MiraLax 17g 1 to 2 times daily. 4. No heavy lifting > 10-15 pounds x 4-6 weeks for hernia repairs and 2 weeks for laparoscopic cholecystectomy or appendectomy. 5. No driving for 3 days or while taking narcotic pain medications. 6. Ice to surgical site for 48 hours (30 min on, then 30 min off). 7. Up walking 10-30 minutes three times per day. 8. Resume previous home medications. 9. Follow-up 10-14 days in office for wound check or as previously scheduled. ([id number]) 10. Oral pain medications prescription to be sent to pharmacy. Take Tylenol 500mg every 6 hours and Ibuprofen 600mg every 6 hours for the first 2 days, then as needed. 11. NUTRITION: Start out by drinking fluids and increase your diet as tolerated. If you experience nausea, try dry toast, crackers, and 7-UP. If nausea or vomiting persists, contact your surgeon?s office. 12. Gallbladders-Low Fat Diet for 2 weeks (send care note of low fat diet) 13. Inguinal Hernias-wear
== END 2020-11-07 13:24 | disposition home or self-care (01) ==
LOC: ANHED 19:37 → ANH2MED 20:39
PROVIDERS: Admitting Provider Surgery; Emergency Provider Emergency Medicine; PCP Internal Medicine; Visit Provider Surgery
PROC: 0DTJ4ZZ Resection of Appendix, Percutaneous Endoscopic Approach (ICD-10-PCS; CPT 44970; principal; 2020-11-07 07:30)
DX: K35.30 Acute appendicitis with localized peritonitis, without perforation or gangrene (principal); K42.9 Umbilical hernia without obstruction or gangrene; E29.1 Testicular hypofunction; B00.9 Herpesviral infection, unspecified; Z98.1 Arthrodesis status; Z87.891 Personal history of nicotine dependence; Z79.890 Hormone replacement therapy
CPT/HCPCS: 44970; 36415; 74177; 80048; 80053; 81001; 83690; 85025; 88304; 96361; 96365; 96367; 96375; 99285; A9270; G0378; J0131; J0330; J1100; J1885; J1956; J2270; J2405; J2704; J3010; J7030; J7120; Q9967

== ENCOUNTER 2023-09-28 10:16 | Outpatient (CLI) | payer OTHER, SELFPAY ==
--- NOTE | ~2023-09-28 | XR_ITS ---
EXAM: XR shoulder RT min 2V DATE: 09/28/2023 10:34 HISTORY: M25.511 - Pain in right shoulder . COMPARISON: 03/05/2020, images only. FINDINGS: Normal mineralization. No fracture or dislocation. No lytic or blastic lesion. Partially v isualized ACDF hardware. Moderate AC joint and mild glenohumeral joint degenerative change. Acromial tip enthesopathy. No erosion or periosteal change. Soft tissues within normal limits. IMPRESSION: Moderate acromioclavicular and mild glenohumeral osteoarthritis. Reviewed, dictated and finalized at location K.
== END 2023-09-28 10:17 ==
LOC: GOSHIMG 10:17
PROVIDERS: PCP Internal Medicine; Visit Provider Clinical Nurse Specialist
DX: M19.011 Primary osteoarthritis, right shoulder (principal)
CPT/HCPCS: 73030

== ENCOUNTER 2023-11-23 07:01 | Outpatient (CLI) | payer OTHER, SELFPAY ==
--- NOTE | ~2023-11-23 | MR_ITS ---
EXAMINATION: MR shoulder RT wo con DATE: 11/23/2023 07:42 INDICATION: Right shoulder pain TECHNIQUE: Magnetic resonance imaging (MRI) of the right shoulder was performed without intravenous c ontrast. Sequences included axial PD-weighted FS FSE, coronal oblique PD-weighted FS FSE, coronal obl ique T2-weighted FS FSE, sagittal PD-weighted FS FSE, and sagittal T1-weighted SE. COMPARISON: None. FINDINGS: Coracoacromial arch: The acromion undersurface is curved in morphology (type II). Tiny anterolateral subacromial spur at t he acromial attachment of the normal coracoacromial ligament. Moderate acromioclavicular osteoarthrit is with small inferiorly directed osteophytes. Rotator cuff: Moderate supraspinatus and mild infraspinatus tendinopathy. There is an articular sided tear along th e superior facet footplate of the supraspinatus tendon which extends 1 cm AP and appears to involve u p to one half of the tendon thickness. There is a second small intrasubstance tear measuring 3 mm AP along middle facet footplate of the conjoined supraspinatus and infraspinatus tendons involving appro ximately one third of the tendon thickness. No significant medial retraction of the torn portion of t he tendon. 1.3 x 1.1 x 0.5 cm fluid collection at the site of a small partial tear along the deep ed tendinous junction of the infraspinatus tendon located at the level of the rim of the glenoid. There is mild surrounding edema. The teres minor tendon is normal. Mild subscapularis tendinopathy. There i s a small longitudinal split tear along the medial rim of the intertubercular groove which extends 5 mm medially between the bursal side of the subscapularis tendon which remains contiguous with the int act transverse humeral ligament and the deeper portion of the tendon which remains attached to the le sser tuberosity. No rotator cuff muscle fatty atrophy. Biceps tendon, glenoid labrum and glenohumeral cartilage: There is partial subluxation of the long head biceps tendon across the rim of the intertubercular kevin ove and into a subscapular tendon split tear. There is moderate tendinopathy without discrete tear of the long head biceps tendon centered at the junction of the intra-articular and extra-articular port ions of the tendon. There is a tear of the anterior labrum beginning at the 1:00 position and extendi ng inferiorly to the 4:00 position inferiorly. There is additional tear at the 5:30-6:00 position of the inferior glenoid. There is mild partial-thickness cartilage loss with scattered mild chondral carrillo face regularity along the inferomedial aspect of the humeral head. Fluid: Mild synovitis and mild increased fluid in the long head biceps tendon sheath which is disproportiona te to the physiologic amount fluid in the glenohumeral joint space consistent with mild bicipital ten osynovitis. A small ganglion cyst arising from the biceps tendon sheath extends into the substance of the transverse humeral ligament along its attachment to the lateral rim of the intertubercular groov e. No loose osteochondral bodies. Small amount of fluid in the subacromial/subdeltoid bursa consisten t with mild bursitis. Bones: Low signal intensity bone island at the posterior superior neck of the glenoid. Otherwise normal giovanni ow signal with no reactive edema, fracture or pathologic marrow replacing process. IMPRESSION: 1. Mild to moderate rotator cuff tendinopathy with multiple small partial-thickness rotator cuff tear s. These include: - Along the bursal side of the footplate of the supraspinatus tendon - Intrasubstance at the middle facet footplate of the conjoined portion of the supraspinatus and i nfraspinous tendons - Intrasubstance tear of the more medial myotendinous junction of the infraspinatus tendon - Split tear along the medial rim of the intertubercular groove 2. Bicipital tenosynovitis with moderate tendinopathy centered at the j
== END 2023-11-23 07:02 | disposition home or self-care (01) ==
LOC: MICIMG 07:02
PROVIDERS: PCP Internal Medicine; Visit Provider Orthopaedic Surgery
DX: M75.111 Incomplete rotator cuff tear or rupture of right shoulder, not specified as traumatic (principal); M75.21 Bicipital tendinitis, right shoulder; M19.011 Primary osteoarthritis, right shoulder; M25.511 Pain in right shoulder
CPT/HCPCS: 73221

== ENCOUNTER 2024-02-20 01:21 | Day surgery (SDC) | payer OTHER, SELFPAY ==
[2024-02-08 14:26] VITALS: BMI 30.4
[2024-02-20 07:12] VITALS: BP 125/97; PULSE 74; RESP 16; TEMP 36.1; O2SAT 97
[2024-02-20] MEDS: LACTATED RINGERS 1,000 ML 150 ML IV CONT (07:19)
--- NOTE | 2024-02-20 07:22 | WPDANESEPPF ---
Anes - Initial Pre Proc Eval Procedure: Operation Date: 02/20/24 08:30 Proposed Procedures p Screening Colonoscopy - Denzel Baltazar MD Date/Time: 02/20/24 07:22 Surgeon: Denzel Baltazar MD Pre Op Diagnosis: Neoplasm screening Patient Data Age: 53 Gender: M Height: 1.93 m Weight: 112.2 kg Last Vital Signs Temp 36.1 C L 02/20/24 07:12 Pulse 74 02/20/24 07:12 Resp 16 02/20/24 07:12 BP 125/97 H 02/20/24 07:12 Pulse Ox 97 02/20/24 07:12 O2 Del Method Room Air 02/20/24 07:12 Allergies Allergy/AdvReac Type Severity Reaction Status Date / Time Penicillins Allergy Intermediate Rash Verified 02/20/24 07:09 Home Medications ?Medication ?Instructions ?Recorded ?Confirmed ?Type testosterone cypionate 100 mg/mL 150 mg (1.5 mL) IM 3XW #10 mL 06/24/21 02/20/24 Rx intramuscular oil (Depo-Testosterone) tadalafil 10 mg tablet 10 mg PO DAILY PRN sexual activity 07/07/23 02/08/24 Rx #30 tabs naproxen 500 mg tablet 500 mg PO BID #60 tabs 11/01/23 02/08/24 Rx alprazolam 0.25 mg tablet (Xanax) 0.25 mg PO DAILY PRN anxiety #30 12/04/23 02/08/24 Rx tabs valacyclovir 500 mg tablet 500 mg PO DAILY #90 tabs 12/25/23 02/20/24 Rx Patient hx anesthesia problems: none Family hx anesthesia problems: none Results Review: All pre-operative results and documents have been reviewed as part of the pre-operative evaluation. [facility] Past Medical History Medical History Establishing care with new doctor, encounter for H/O ETOH abuse History of smoking Acute appendicitis Overweight (BMI 25.0-29.9) Inflamed sebaceous cyst Subacromial impingement of left shoulder Arthritis of right acromioclavicular joint BMI 30.0-30.9,adult Arthritis of left acromioclavicular joint BPV (benign positional vertigo) Venereal herpes Long-term current use of testosterone replacement therapy Low testosterone Surgical History Surgical History Left rotator cuff tear Left rotator cuff repair with distal clavicle excision August 17, 2020 Previous back surgery 2011 spinal fusion c6-c7 H/O shoulder surgery 1989 for left AC separation S/P lateral meniscal repair 2015, Dr. mukherjee H/O spinal fusion Family History Family History Father , Age 66 Cardiovascular Heart disease Son Depression Social History Social History Smoking packs per day: 1 Smoking cigarettes per day: 20.0 Years smoked: 10 Smoking pack-years: 10.00 Smoking status: Former smoker Tobacco type: cigarettes Second hand tobacco smoke exposure: No Additional smoking assessment comments: QUIT 2006 Alcohol intake: current Drinks per week: 7 Alcohol use details: 10 beers weekly Substance use: never Substance use type: does not use Do You Feel Safe in your Home?: Yes Lack of Transportation: No Lack of Food: Never True Current Housing: I Have Housing Concerned About Future Housing: No Difficulty Paying Gas/Electric Bills: No Difficulty Paying for Meds: No Currently Unemployed: No Education: Trade/Vocational Certificate Difficulty w/ Childcare or Family Care: No Living arrangements: with family Occupation/Education: occupation 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 Informed Consent: The patient's anesthetic plan and its attendant risks and benefits were discussed with the patient/family/POA. Questions were solicited and answers provided to the satisfaction of the patient/family/POA.
--- NOTE | 2024-02-20 07:37 | WPDANESEPPF ---
Anes - Initial Pre Proc Eval Procedure: Operation Date: 02/20/24 08:30 Proposed Procedures p Screening Colonoscopy - Denzel Baltazar MD Date/Time: 02/20/24 07:37 Surgeon: Denzel Baltazar MD Pre Op Diagnosis: Neoplasm screening Patient Data Age: 53 Gender: M Height: 1.93 m Weight: 112.2 kg Last Vital Signs Temp 36.1 C L 02/20/24 07:12 Pulse 74 02/20/24 07:12 Resp 16 02/20/24 07:12 BP 125/97 H 02/20/24 07:12 Pulse Ox 97 02/20/24 07:12 O2 Del Method Room Air 02/20/24 07:12 Allergies Allergy/AdvReac Type Severity Reaction Status Date / Time Penicillins Allergy Intermediate Rash Verified 02/20/24 07:09 Home Medications ?Medication ?Instructions ?Recorded ?Confirmed ?Type testosterone cypionate 100 mg/mL 150 mg (1.5 mL) IM 3XW #10 mL 06/24/21 02/20/24 Rx intramuscular oil (Depo-Testosterone) tadalafil 10 mg tablet 10 mg PO DAILY PRN sexual activity 07/07/23 02/08/24 Rx #30 tabs naproxen 500 mg tablet 500 mg PO BID #60 tabs 11/01/23 02/08/24 Rx alprazolam 0.25 mg tablet (Xanax) 0.25 mg PO DAILY PRN anxiety #30 12/04/23 02/08/24 Rx tabs valacyclovir 500 mg tablet 500 mg PO DAILY #90 tabs 12/25/23 02/20/24 Rx Patient hx anesthesia problems: none Family hx anesthesia problems: none Results Review: All pre-operative results and documents have been reviewed as part of the pre-operative evaluation. [facility] [place] Past Medical History Medical History (Updated 02/20/24 @ 07:38 by Konstantin Nicholas MD) Establishing care with new doctor, encounter for H/O ETOH abuse History of smoking Overweight (BMI 25.0-29.9) Inflamed sebaceous cyst Subacromial impingement of left shoulder Arthritis of right acromioclavicular joint BMI 30.0-30.9,adult Arthritis of left acromioclavicular joint BPV (benign positional vertigo) Venereal herpes Long-term current use of testosterone replacement therapy Low testosterone Surgical History Surgical History Left rotator cuff tear Left rotator cuff repair with distal clavicle excision August 17, 2020 Previous back surgery 2011 spinal fusion c6-c7 H/O shoulder surgery 1989 for left AC separation S/P lateral meniscal repair 2015, Dr. mukherjee H/O spinal fusion Family History Family History Father , Age 66 Cardiovascular Heart disease Son Depression Social History Social History Smoking packs per day: 1 Smoking cigarettes per day: 20.0 Years smoked: 10 Smoking pack-years: 10.00 Smoking status: Former smoker Tobacco type: cigarettes Second hand tobacco smoke exposure: No Additional smoking assessment comments: QUIT 2006 Alcohol intake: current Drinks per week: 7 Alcohol use details: 10 beers weekly Substance use: never Substance use type: does not use Do You Feel Safe in your Home?: Yes Lack of Transportation: No Lack of Food: Never True Current Housing: I Have Housing Concerned About Future Housing: No Difficulty Paying Gas/Electric Bills: No Difficulty Paying for Meds: No Currently Unemployed: No Education: Trade/Vocational Certificate Difficulty w/ Childcare or Family Care: No Living arrangements: with family Occupation/Education: occupation 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 Informed Consent: The patient's anesthetic plan and its attendant risks and benefits were discussed with the patient/family/POA. Questions were solicited and answers provided to the satisfaction of the patient/family/POA.
--- NOTE | 2024-02-20 08:06 | PM.HPGS ---
History of Present Illness History of Present Illness Consent: Risks, benefits, and alternatives have been discussed and questions answered. Patient agrees to proceed with procedure. Chief complaint: Neoplasm screening Narrative: Tadeo See is a 53 year old male here for first screening colonoscopy Review of Systems Review of Systems: All systems reviewed & are unremarkable except as noted in HPI and below PMFSH Past Medical History Medical History (Updated 02/20/24 @ 07:38 by Konstantin Nicholas MD) Establishing care with new doctor, encounter for H/O ETOH abuse History of smoking Overweight (BMI 25.0-29.9) Inflamed sebaceous cyst Subacromial impingement of left shoulder Arthritis of right acromioclavicular joint BMI 30.0-30.9,adult Arthritis of left acromioclavicular joint BPV (benign positional vertigo) Venereal herpes Long-term current use of testosterone replacement therapy Low testosterone Surgical History Surgical History Left rotator cuff tear Left rotator cuff repair with distal clavicle excision August 17, 2020 Previous back surgery 2011 spinal fusion c6-c7 H/O shoulder surgery 1989 for left AC separation S/P lateral meniscal repair 2015, Dr. mukherjee H/O spinal fusion Family History Family History Father , Age 66 Cardiovascular Heart disease Son Depression Social History Social History Smoking packs per day: 1 Smoking cigarettes per day: 20.0 Years smoked: 10 Smoking pack-years: 10.00 Smoking status: Former smoker Tobacco type: cigarettes Second hand tobacco smoke exposure: No Additional smoking assessment comments: QUIT 2006 Alcohol intake: current Drinks per week: 7 Alcohol use details: 10 beers weekly Substance use: never Substance use type: does not use Do You Feel Safe in your Home?: Yes Lack of Transportation: No Lack of Food: Never True Current Housing: I Have Housing Concerned About Future Housing: No Difficulty Paying Gas/Electric Bills: No Difficulty Paying for Meds: No Currently Unemployed: No Education: Trade/Vocational Certificate Difficulty w/ Childcare or Family Care: No Living arrangements: with family Occupation/Education: occupation 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[employer]) Gender identity (if verbalized by the patient): Male Spiritual care concerns: No Meds Home Medications and Allergies Home Medications ?Medication ?Instructions ?Recorded ?Confirmed ?Type testosterone cypionate 100 mg/mL 150 mg (1.5 mL) IM 3XW #10 mL 06/24/21 02/20/24 Rx intramuscular oil (Depo-Testosterone) tadalafil 10 mg tablet 10 mg PO DAILY PRN sexual activity 07/07/23 02/08/24 Rx #30 tabs naproxen 500 mg tablet 500 mg PO BID #60 tabs 11/01/23 02/08/24 Rx alprazolam 0.25 mg tablet (Xanax) 0.25 mg PO DAILY PRN anxiety #30 12/04/23 02/08/24 Rx tabs valacyclovir 500 mg tablet 500 mg PO DAILY #90 tabs 12/25/23 02/20/24 Rx Allergies Allergy/AdvReac Type Severity Reaction Status Date / Time Penicillins Allergy Intermediate Rash Verified 02/20/24 07:09 Vital Signs Vital Signs - 24 hr 02/20/24 07:12 Temperature 97.0 F L Pulse Rate 74 Respiratory Rate 16 Blood Pressure 125/97 H Pulse Oximetry 97 Oxygen Delivery Room Air Exam Const: General: comfortable and no acute distress HENMT: Face/Nose/Sinus: Normal nares present Eyes: General: appearance normal, both eyes and all related structures Neck: Neck: no JVD Resp: Auscultation: clear to auscultation bilaterally Cardio: Rate: regular rate Rhythm: regular rhythm GI: Inspection: non-distended GI Palp: Yes Soft to palpation Skin: General skin exam: normal color Neuro: General: gait normal Speech: normal speech Extrem: General: normal to inspection Psych: Mental Status: mental status grossly normal Assessment and Plan Assessment and plan (1) Screening for colon cancer: Code(s): Z12.11 - Encounter for screening for malignant neoplasm of colon Status: Acute Assessment and Plan: colonoscopy
[2024-02-20 08:21] VITALS: BP 113/71; PULSE 73; RESP 20; O2SAT 96
[2024-02-20 08:31] VITALS: BP 127/77; PULSE 68; RESP 14; O2SAT 98
[2024-02-20 08:41] VITALS: BP 128/88; PULSE 67; RESP 18; O2SAT 97
== END 2024-02-20 08:51 | disposition home or self-care (01) ==
PROVIDERS: PCP Internal Medicine; Referring Provider Clinical Nurse Specialist; Visit Provider Internal Medicine Gastroenterology
PROC: 0DJD8ZZ Inspection of Lower Intestinal Tract, Via Natural or Artificial Opening Endoscopic (ICD-10-PCS; CPT 45378; principal; 2024-02-20 08:30)
DX: Z12.11 Encounter for screening for malignant neoplasm of colon (principal); K51.40 Inflammatory polyps of colon without complications; M19.012 Primary osteoarthritis, left shoulder; M19.011 Primary osteoarthritis, right shoulder; E29.1 Testicular hypofunction; Z79.890 Hormone replacement therapy; E66.9 Obesity, unspecified; Z68.30 Body mass index [BMI] 30.0-30.9, adult; Z79.1 Long term (current) use of non-steroidal anti-inflammatories (NSAID); Z98.890 Other specified postprocedural states; Z98.1 Arthrodesis status; Z87.891 Personal history of nicotine dependence; Z82.49 Family history of ischemic heart disease and other diseases of the circulatory system
CPT/HCPCS: 45385; 88305; J2704; J7120

== ENCOUNTER 2024-03-05 08:00 | Outpatient (RCR) | payer OTHER, SELFPAY ==
--- NOTE | 2024-01-23 08:51 | OPREHPOC ---
Outpatient Therapy Plan of Care This is a Multidisciplinary Plan of Care that may contain components documented by all disciplines (PT, OT, and ST.) PT Problem 1 PT Problem #1 Knowledge Deficit PT Goal 1 Goal / Goal Update *indep with HEP * good position of shoulder with exercises Target Visit 8 PT Problem 2 PT Problem #2 Pain PT Goal 1 Goal / Goal Update 1* pt report pain at worst rating of 4/10 2* pt report with sleeping, awaken 5x/night due to shoulder pain 3* self assessment Quick DASH rating of 30% limitation in activity level Target Visit 8 PT Problem 3 PT Problem #3 Impaired Strength PT Goal 1 Goal / Goal Update increase strength of R shoulder/scapula to improve position and posture of GH joint: pt perform in standing x 5 reps 1* flexion to 160' 2* abduction to 140' 3* scapular strength with prone scapular retraction with UE at 90' with 3# hand wt x 10 reps Target Visit 8
--- NOTE | 2024-01-23 08:51 | PTOPEVAL1 ---
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 MRI reports rotator cuff tears and tendinopathy with mod A-C joint OA with bursitis. Quick DASH self rating of 39% limitation in activity. His activity and sleeping tolerances are decreased due to shoulder pain. He is R hand dominant. 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 History includes: L shoulder arthroscopy, cervical fusion and LBP. After completion of PT, he is to follow up with and assess if surgery is indicated or not. With the evaluation: he has rounded shoulder posture, decreased active ROM of R shoulder, shoulder abduction is most painful motion. Skilled PT services are indicated for modalities to decrease pain, therapeutic exercises to improve posture and position of GH joint with education for HEP and pain control. Plan of Care Interventions Electrical Stimulation,Hot Pack/Cold Pack,Manual Therapy,Neuro Re-education,Patient Education,Therapeutic Activities,Therapeutic Exercise,Ultrasound,Other Other Interventions taping, dry needling PT Services Indicated Yes Treatment Frequency and 1-2x/wk for 8 visits Duration These treatments will address the objective and functional deficits as defined above. The patient will be advanced safely and appropriately in order for the patient to progress towards his/her prior level of function. Additional exercises will be introduced and as well as a comprehensive home exercise program upon discharge, if needed, ?to ensure carryover of functional gains achieved in the clinic. This treatment plan has been reviewed and agreement upon by the patient.
--- NOTE | 2024-02-23 11:59 | PCPTNOTE ---
pt called and canceled due to having to work.
[2024-03-05 08:00] VITALS: BP_SYST 150
--- NOTE | 2024-03-05 08:40 | PTOPDC ---
Assessment and note entered by Lucy Maguire, PT Assessment Status Discharge ICD-10 Condition Codes (PT) Pain in right shoulder M25.511 Other ICD-10 Condition Codes ( S46.021 strain R rotator cuff PT) Onset about 1 year Subjective Information shoulder feels a little better and looser after therapy, but then comes right back; hurts with driving; doing all the exercises and watching posture; have a dr appointment end of March; Reported Pain Level Pain Score Self Report Additional Pain Score Comments pain range in the past week 1-5/10; dull ache; posterior shoulder with sleeping awaken about 10 times/night due to pain limited use of R arm due to pain--problems getting shirts and coats on Assessment PT Clinical Summary Tadeo has received 7 PT sessions. He called/ canceled 1 appointment. Compared to the initial eval: pain rating from 0-7/10 to 1-5/10; self assessment Quick Dash rating from 39 to 45% limitation in activity level; sleeping tolerance is the same, awakening ~ 10 x/ night due to shoulder pain; increase scapular- thoracic strength and posture awareness; education completed for HEP and posture; AROM of R shoulder: flexion 145', abduction 145', IR- reach behind back, palm to above waist; ER- reaching to back of head- palm to back of head. Most pain with abduction motion. The goals were partially met. Discharge PT. He is to continue with the HEP. And has follow up dr appt in March. Plan of Care PT Services Indicated No
== END 2024-03-05 11:33 | disposition home or self-care (01) ==
LOC: ANHPT 08:00
PROVIDERS: PCP Internal Medicine; Visit Provider Orthopaedic Surgery
DX: S46.011A Strain of muscle(s) and tendon(s) of the rotator cuff of right shoulder, initial encounter (principal); S43.001A Unspecified subluxation of right shoulder joint, initial encounter
CPT/HCPCS: 97014; 97110; 97140; 97161; 97530; G0283

== ENCOUNTER 2024-06-21 12:27 | Outpatient (CLI) | payer OTHER, SELFPAY ==
--- OUTSIDE RECORDS SUMMARY | 2024-06-21 12:32 | XMS_ITS | Continuity of Care Document ---
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 [facility] [address], [place], [address], [place]. tel:[phone] Family History Family Member Type Diagnosis Age At Onset No Information Payers Payer name Insurance type Covered libertarian ID Authorneliaa nathaniel(s) [facility] [id number] Social History Type Description Quantity Date Captured Comments Sex Male Smoking Status No Information Chief Complaint And Reason For Visit No Information Reason For Referral Reason For Referral No Information History Of Present Illness Encounter Date Complaint History Of Prese nt Illness No Information Functional Status Date Functional Assessmen t No Information Instructions Date Instruction Additional Infor mation No Information Assessments Type Assessment Date No Information Patient Care Teams Name Effective Dates (start - stop) Status Members No Information
== END 2024-06-21 12:28 | disposition home or self-care (01) ==
LOC: ANHSURGERY 12:30
PROVIDERS: PCP Internal Medicine; Visit Provider Orthopaedic Surgery
DX: Z01.818 Encounter for other preprocedural examination (principal)
CPT/HCPCS: 87081

== ENCOUNTER 2024-06-27 02:28 | Day surgery (SDC) | payer OTHER, SELFPAY ==
[2024-06-18 14:25] VITALS: BMI 30.4
--- NOTE | 2024-06-18 14:46 | PC.NURSE ---
Report to the Outpatient Waiting Room, entrance under the green pavilion located off [facility], at time ___929____ on date ____06/27/24___. Planned Procedure Time: ____1129____.? Time changes happen often and if your time is changed the preop area will call you the afternoon before. - You and your visitor will be asked to self-screen and do not enter if you have any COVID symptoms. Please call surgeon if you need to reschedule. - A mask is optional within the hospital at this time. Patients may have clear liquids (water, carbonated beverages, clear teas, apple juice) until 3 hours prior to surgery with a maximum of 20 ounces. - No food from midnight until time of surgery and no smoking, or chewing tobacco (or any form of nicotine). No chewing gum, candy or mints. Take only the following medications with a SIP of water on the morning of surgery: alprazolam, valacyclovir____ DO NOT STOP ANY OF YOUR OTHER PRESCRIPTION MEDICATIONS PRIOR TO SURGERY EXCEPT THE FOLLOWING Hold all vitamins and supplements for 3 days per anesthesiologist. Medications to discontinue per physician Date to take last dose Please no make-up, nail italian, hairspray, perfume, deodorant, or body powder the day of surgery.? No jewelry (including any body piercings) or valuables the day of surgery, leave them at home.? Please take a shower or bath the night before, or the morning of, surgery with an antibacterial soap.? Wear comfortable, loose fitting clothing.? Children are encouraged to wear pajamas. - Jewelry must be removed prior to entering the operating room.? Rings and piercings that are not removed may be cut off. - The hospital will not accept responsibility for valuables.? - Please leave all valuables, including medications, at home the day of surgery. If you are going home after surgery, a licensed bulk driver must drive you home.? - NO public transportation without another adult if you receive anesthesia. - We recommend that an adult stay with you for 24 hours following discharge. - We also recommend that you do not drive, make important decision, drink alcoholic beverages, or take any drugs that were not prescribed by your health care provider for at least 24 hours after your discharge time. Follow any additional instructions given to you from your surgeon. Telephone instructions given to ____Brian and asked if any additional questions and then verbalized understanding. Patient advised to call surgeon office or pre surgery nurse liaison [phone] if any additional questions.
--- NOTE | 2024-06-26 12:40 | P.HP_ITS ---
H&P: HPI History of Present Illness Date/Time: 06/26/24 12:40 Chief Complaint: Right rotator cuff tear and long head of the biceps subluxation Narrative: 54-year-old male presents today for arthroscopy of the right shoulder with rotator cuff repair and possible biceps tenodesis. Patient having symptoms as shoulder for over a year. He was initially seen last October to for the pain. He was sent for an MRI scan that was done in November of last year. It shows significant high-grade partial-thickness tear involving the majority of the supraspinatus tendon. Also showed subluxation of the long head of the biceps tendon. Patient has been trying to live with the symptoms in the shoulder. He has tried different [id number]-[id number] anti-inflammatories without improvement. He was given a Medrol Dosepak in the past which helped only for a short time. He has done physical therapy on the shoulder as well which is helped a little bit with his range of motion when he continues have symptoms on a daily basis. Patient has reached a point where he feels he would rather proceed with repair of the rotator cuff tendon the right shoulder rather continue nonsurgical treatment. Review of Systems Review of Systems: All systems reviewed & are unremarkable except as noted in HPI and below PMFSH Past Medical History Medical History Establishing care with new doctor, encounter for H/O ETOH abuse History of smoking Overweight (BMI 25.0-29.9) Inflamed sebaceous cyst Subacromial impingement of left shoulder Arthritis of right acromioclavicular joint BMI 30.0-30.9,adult Arthritis of left acromioclavicular joint BPV (benign positional vertigo) Venereal herpes Long-term current use of testosterone replacement therapy Low testosterone Surgical History Surgical History Left rotator cuff tear Left rotator cuff repair with distal clavicle excision August 17, 2020 Previous back surgery 2011 spinal fusion c6-c7 H/O shoulder surgery 1989 for left AC separation S/P lateral meniscal repair 2014, Dr. mukherjee H/O spinal fusion Family History Family History Father , Age 66 Cardiovascular Heart disease DVT (deep venous thrombosis) Son Depression Social History Social History Smoking packs per day: 1 Smoking cigarettes per day: 20.0 Years smoked: 10 Smoking pack-years: 10.00 Smoking status: Former smoker Tobacco type: cigarettes Second hand tobacco smoke exposure: No Smoking end date: 03/06/19 Additional smoking assessment comments: QUIT 2006 Alcohol intake: current Drinks per week: 7 Alcohol use details: 10 beers weekly Substance use: former Substance use type: marijuana Last use: 1989 Do You Feel Safe in your Home?: Yes Lack of Transportation: No Lack of Food: Never True Current Housing: I Have Housing Concerned About Future Housing: No Difficulty Paying Gas/Electric Bills: No Difficulty Paying for Meds: No Currently Unemployed: No Education: Trade/Vocational Certificate Difficulty w/ Childcare or Family Care: No Living arrangements: with family Occupation/Education: occupation 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[employer]) Gender identity (if verbalized by the patient): Male Spiritual care concerns: No Meds Home Medications and Allergies Home Medications ?Medication ?Instructions ?Recorded ?Confirmed ?Type testosterone cypionate 100 mg/mL 150 mg (1.5 mL) IM 3XW #10 mL 06/24/21 06/18/24 Rx intramuscular oil (Depo-Testosterone) tadalafil 10 mg tablet 10 mg PO DAILY PRN sexual activity 07/07/23 06/18/24 Rx #30 tabs valacyclovir 500 mg tablet 500 mg PO DAILY #90 tabs 12/25/23 06/18/24 Rx alprazolam 0.25 mg tablet (Xanax) 0.25 mg PO DAILY PRN anxiety #30 06/13/24 06/18/24 Rx tabs multivitamin (Daily Multi-Vitamin 1 tablet PO DAILY 06/18/24 06/18/24 History tablet) Allergies Allergy/AdvReac Type Severity Reaction Status Date / Time Penicillins Allergy Intermediate Rash Verified 06/18/24 14:09 Exam Narrative: 54-year-old male alert. He is 6 ft 4 an d 262 lb BMI is 31.8. His right shoulder is active elevation to 145 external rotation 80 internal rotation is to T12. He has mild discomfort with range of motion. He has mild weakness with external rotation and [id number] weakness with abduction strength testing. Subscap lift-off is intact. Negative abdominal compression test. He has no numbness or tingling in the right arm. 2+ radial pulse. Neck range of motion is full without discomfort. Negative Spurling's maneuver. Resp: Auscultation: clear to auscultation bilaterally Cardio: Rate: regular rate Rhythm: regular rhythm Assessment and Plan Assessment and plan (1) Incomplete rotator cuff tear or rupture of right shoulder, not specified as traumatic: Code(s): M75.111 - Incomplete rotator cuff tear or rupture of right shoulder, not specified as traumatic Status: Acute Plan 54-year-old male who has a severely high-grade partial-thickness tear of the right rotator cuff tendon. He also has what appears to be subluxation of his long head of the biceps tendon. He has gone through extensive nonsurgical treatment for this but has not had improvement of his symptoms. He reached a point where he would rather proceed with surgery on the right shoulder. He has had his left rotator cuff repair done in the past and had an excellent outcome from that. Surgical procedures well as risks and complications were discussed in detail questions were answered proceed. Patient will see his primary care doctor for pre-surgical clearance. He will avoid any aspirin or ibuprofen products 1 week prior to surgery. Patient's nasal swab was negative.
[2024-06-27] VITALS (8 sets, daily range): BP systolic 107–147; BP diastolic 59–100; PULSE 59–77; RESP 14–18; TEMP 36.1–36.3; O2SAT 94–98
--- OUTSIDE RECORDS SUMMARY | 2024-06-27 02:30 | XMS_ITS | Continuity of Care Document ---
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 [facility] [address], [place], [address], [place]. tel:[phone] Family History Family Member Type Diagnosis Age At Onset No Information Payers Payer name Insurance type Covered constitution party ID Authorneliaa nathaniel(s) [facility] [id number] Social History Type Description Quantity Date Captured [...]
[2024-06-27] MEDS: VANCOMYCIN 1,750 MG/NS 500 ML 1,750 MG/500 ML BAG 250 MG IVPB (11:00)
--- NOTE | 2024-06-27 11:11 | P.PNAN_ITS ---
Anes - Initial Pre Proc Eval Procedure: Operation Date: 06/27/24 11:30 Proposed Procedures p Right Shoulder Arthroscopy, Mini Open Rotator Cuff Repair, Possible Biceps Tenodesis, Proceed as Indicated - Nasir Chacon MD Date/Time: 06/27/24 11:11 Surgeon: Nasir Chacon MD Pre Op Diagnosis: rt rotator cuff tear,long head biceps sublexation Patient Data Age: 54 Gender: M Height: 1.93 m Weight: 113.6 kg Allergies Allergy/AdvReac Type Severity Reaction Status Date / Time Penicillins Allergy Intermediate Rash Verified 06/18/24 14:09 Home Medications ?Medication ?Instructions ?Recorded ?Confirmed ?Type testosterone cypionate 100 mg/mL 150 mg (1.5 mL) IM 3XW #10 mL 06/24/21 06/18/24 Rx intramuscular oil (Depo-Testosterone) tadalafil 10 mg tablet 10 mg PO DAILY PRN sexual activity 07/07/23 06/18/24 Rx #30 tabs valacyclovir 500 mg tablet 500 mg PO DAILY #90 tabs 12/25/23 06/18/24 Rx alprazolam 0.25 mg tablet (Xanax) 0.25 mg PO DAILY PRN anxiety #30 06/13/24 06/18/24 Rx tabs multivitamin (Daily Multi-Vitamin 1 tablet PO DAILY 06/18/24 06/18/24 History tablet) Patient hx anesthesia problems: none Family hx anesthesia problems: none Results Review: All pre-operative results and documents have been reviewed as part of the pre- operative evaluation. 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 mukherjee H/O spinal fusion Family History Family History Father , Age 66 Cardiovascular Heart disease DVT (deep venous thrombosis) Son Depression Social History Social History Smoking packs per day: 1 Smoking cigarettes per day: 20.0 Years smoked: 10 Smoking pack-years: 10.00 Smoking status: Former smoker Tobacco type: cigarettes Second hand tobacco smoke exposure: No Smoking end date: 03/06/19 Additional smoking assessment comments: QUIT 2006 Alcohol intake: current Drinks per week: 7 Alcohol use details: 10 beers weekly Substance use: former Substance use type: marijuana Last use: 1989 Do You Feel Safe in your Home?: Yes Lack of Transportation: No Lack of Food: Never True Current Housing: I Have Housing Concerned About Future Housing: No Difficulty Paying Gas/Electric Bills: No Difficulty Paying for Meds: No Currently Unemployed: No Education: Trade/Vocational Certificate Difficulty w/ Childcare or Family Care: No Living arrangements: with family Occupation/Education: occupation 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 Informed Consent: The patient's anesthetic plan and its attendant risks and benefits were discussed with the patient/family/POA. Questions were solicited and answers provided to the satisfaction of the patient/family/POA.
--- NOTE | 2024-06-27 11:14 | WPDHPUPDATE1 ---
History and Physical Update Update Date/Time: 06/27/24 11:14 History and Physical has been reviewed, including an updated exam of the patient. There are NO changes in the patient's condition. Risks, benefits, and alternatives have been discussed and questions answered. Patient agrees to proceed with procedure.
[2024-06-27] MEDS: KETOROLAC 15 MG/ML VIAL (*BKC) IV PUSH (11:30)
[2024-06-27] MEDS: LACTATED RINGERS 1,000 ML 30 ML IV CONT ×2 (11:30→14:57)
[2024-06-27] MEDS: ACETAMINOPHEN 500 MG TABLET 1000 MG PO (11:30)
[2024-06-27] MEDS: ceFAZolin SODIUM 1 GM VIAL (11:56)
[2024-06-27] MEDS: ceFAZolin 2 GM/D5W 50 ML 2 GM/50 ML BAG IVPB (11:56)
--- NOTE | 2024-06-27 12:26 | WPDANESPNB ---
Anes - Peripheral Nerve Block Date/Time: 06/27/24 12:26 I have discussed with the patient/family/POA the placement of a peripheral nerve block for post-operative pain management, including associated risks, benefits, complications, and side effects. Alternative methods of post-operative analgesia were detailed. Questions were solicited and answers provided to the satisfaction of the patient/family/POA. Time-Out: A pre-procedural Time-Out was completed immediately before starting the procedure and confirmed: Patient Identification, Site, Procedure, Patient Position and the Availability of Requisite Equipment. Clinical Indications: Acute post-operative pain management requested by the operative surgeon. Nerve Block Insertion Note Anes-nerve block: interscalene right Patient position: supine Skin prep: chlorhexidine Needle: 22 gauge, stimulating, insulated echogenic needle. Needle length: 50 mm Technique: ultrasound Injectate: bupivacaine 0.5% with epi 5 mcg/ml (30 cc) Observations: tolerated well Complications: none Procedure start time:: 1125 Procedure end time:: 1130
--- NOTE | 2024-06-27 15:05 | PM.OP ---
Procedure Note - Brief Procedure Note - Brief Date of procedure: 06/27/24 rt rotator cuff tear,long head biceps sublexation Procedure performed: Arthroscopy right shoulder with mini open rotator cuff repair Surgeon: TASH Schroeder Findings: 54-year-old male who underwent arthroscopy of his right shoulder with mini open rotator cuff repair on 06/27. I was involved in the procedure including positioning the patient on the OR table in 1st assisting through the time surgery. Total time spent was 3 hours
[2024-06-27] MEDS: oxyCODONE HCL (*CRX) 5 MG TAB IR PO (16:11)
--- NOTE | 2024-06-27 17:04 | P.OP_ITS ---
Procedure Note - Detailed Date of Procedure 06/27/24 Pre-op Diagnosis rt rotator cuff tear, Post-op Diagnosis Same Procedure Performed Diagnostic arthroscopy with arthroscopic labral debridement and arthroscopic acromioplasty, mini open rotator cuff repair right shoulder Surgeon Nasir Chacon MD Vehicle Body Maker Rene Cisneros PA-C Anesthesia General and Regional Description of Procedure Patient brought to the operating room and general anesthesia was administered. He was placed in the beach chair position with the head secured in neutral alignment. The right shoulder prepped draped usual fashion. He received 3 g of Ancef weight based vancomycin preoperatively. In the preop holding area he received an interscalene block for postoperative analgesia. All the skin was covered with I Devries at the top portion the shoulder. Standard posterior portal was placed. Articular surfaces looked normal. He had longitudinal short split tear near the insertion of the subscapularis tendon exiting superiorly. There did not appear to be any detachment from the lesser tuberosity. The long of the biceps looked normal. The medial jung was intact. There was maceration of the anterior and superior labrum which was debrided with motorized shaver. The superior labrum was stable to probing. The long of the biceps was pulled into the joint and there was no fraying or excoriation on it. On the MRI scan I suspected that it might be slightly perched on the anterior lateral margin of th e lesser tuberosity but as he did not have tenderness or pain with speed's maneuver and the long of the biceps looked normal clinically I elected to leave this alone. There was a full-thickness tear of the supraspinatus tendon visualized. Arthroscope was placed into the subacromial space. Outflow portal placed the anterior superior portal and mid lateral portal placed. The CA ligament was pr ominently frayed in the anterior inferior surface of the acromion and this was debrided with the ArthroCare device from the undersurface the acromion and with the bur through the posterior portal and anterior acromioplasty was performed removing about 2 or 3 mm of bone from the anterior inferior surface of the acromion for decompression. The rotator cuff tear is visualized. The arthroscopic instruments removed the remaining skin covered with IO band. A 2 in longitudinal incision was made from the superior aspect of the anterior acromion and the tendinous raphe between the anterior middle heads of the deltoid was incised for distance of split of 4.5 cm. Approximately 5 or 6 mm of anterior deltoid were elevated off the acromion for improved exposure a self retaining retractor was placed. The full-thickness tear of the supraspinatus tendon was noted. This is AU shaped tear and the lateral edge of the tendon is retracted to the medial margin of the supraspinatus footprint on the greater tuberosity. There was higher grade articular sided partial-thickness tearing of the anterior cable of the supraspinatus and of the anterior 50% of the infraspinatus tendon. The greater tuberosity was carefully prepared roughening this with 2 mm bur after scraping remove residual soft tissue and multiple 2 mm ameena holes were placed adjacent to the articular surface in the supraspinatus and infraspinatus footprints. Two 2. Vicryl suture placed in the tendon itself for traction and subdeltoid subacromial bursal adhesions were released and this gave adequate mobilization tendon reaching anatomic insertion with the arm at the side. A 1.3 mm Lavon suture tape was used in the center of the supraspinatus tendon and a 5. Ethibond used with the 48 mm medial in the mid infraspinatus tendon reducing these tendons to their appropriate location. We then placed an additional 5. Ethibond at the conjoined portion between infraspinatus and supraspinatus. His bone was too hard to pass the 1.3 mm suture tapes in these other locations but the 5. Ethibond and 2. Ethibond needles was passed well. Additional 2. Ethibonds were placed far anteriorly and far posteriorly and centrally in the gaps placed in a convergent pattern to create a smooth spherical contour to the repaired rotator cuff. There was hypertrophic bursal tissue which was debrided. The arm was taken through full range of motion with no strain on the repair. Wound was irrigated with Ancef solution. Arthroscope was placed in the posterior portal and we visualized the repair from inside. Long and the biceps was mobilized to make sure it was not entrapped by 1 of the anterior sutures and have mobilized easily. The deltoid reattached to the anterior acromion with a single 2. Vicryl and 2. And 1. Vicryl as the split. Skin closed with 2 subcu Vicryl and glue the portal sites with 3.0 subcu Vicryl and glue. There were no complications he was placed in [facility] and transferred to postop recovery in stable condition. [facility] [place] - Charge Forward: Surgery Billing (Arthroscopic labral debridement right shoulder, open rotator cuff repair.)
== END 2024-06-27 16:50 | disposition home or self-care (01) ==
PROVIDERS: PCP Internal Medicine; Visit Provider Orthopaedic Surgery
PROC: (CPT 29805; principal; 2024-06-27 11:30)
DX: M75.121 Complete rotator cuff tear or rupture of right shoulder, not specified as traumatic (principal); M19.011 Primary osteoarthritis, right shoulder; G89.18 Other acute postprocedural pain; F12.90 Cannabis use, unspecified, uncomplicated; E66.9 Obesity, unspecified; Z68.30 Body mass index [BMI] 30.0-30.9, adult; Z79.890 Hormone replacement therapy; Z98.890 Other specified postprocedural states; Z98.1 Arthrodesis status; Z87.891 Personal history of nicotine dependence; Z82.49 Family history of ischemic heart disease and other diseases of the circulatory system
CPT/HCPCS: 64415; 29822; 23412; A4565; A9270; J0690; J1100; J1171; J1885; J2003; J2250; J2371; J2405; J2704; J3010; J3370; J7120

== ENCOUNTER 2024-08-22 07:30 | Outpatient (RCR) | payer OTHER, SELFPAY ==
--- NOTE | 2024-07-01 15:32 | OPREHPOC ---
Outpatient Therapy Plan of Care This is a Multidisciplinary Plan of Care that may contain components documented by all disciplines (PT, OT, and ST.) PT Problem 1 PT Problem #1 Knowledge Deficit PT Goal 1 Goal / Goal Update Stephenson with HEP Target Visit 4 PT Goal 2 Goal / Goal Update Report no pain greater than 2/10 for 2 consecutive weeks Target Visit 8 PT Problem 2 PT Problem #2 Impaired Range of Motion PT Goal 1 Goal / Goal Update 1. Patient will achieve 170 degrees of right shoulder active ROM for improve functional reach 2. Achieve Right shoulder external rotation ROM to 85 degrees to improve self care and capsular mobility Target Visit 10 PT Problem 3 PT Problem #3 Impaired Strength PT Goal 1 Goal / Goal Update 1. Improve gross left shoulder strength to 4/5 to improve functional stability of shoulder girdle as allowed per protocol Target Visit 10
--- NOTE | 2024-07-01 15:33 | PTOPEVAL1 ---
Assessment and note entered by Roni Howe, PT Evaluation Information Assessment Status Evaluation ICD-10 Condition Codes (PT) Pain in right shoulder M25.511 Onset 06/27/24 Subjective Information Reports that he is currently sore and having a lot of trouble sleeping. He has been through surgery on his left shoulder before so he knows what to expect. Denies radiating pain. Reports that he has been having shoulder issues for the past 3 years. He has been taking pain medication regularly due to pain. Reports that he is having trouble taking a deep breath. Reported Pain Level Pain Score 3: Self Report Assessment PT Clinical Summary Patient presents with signs and symptoms typical of post operative rotator cuff. Per protocol ROM and strength testing limited at this time .Patient was educated in HEP to address deficits of strength and ROM to restore functional use of dominant shoulder. Patient demonstrate understanding of POC. Plan of Care Interventions Electrical Stimulation,Manual Therapy,Neuro Re- education,Therapeutic Activities,Therapeutic Exercise PT Services Indicated Yes Treatment Frequency and 1-2x/week for 10 visits Duration These treatments will address the objective and functional deficits as defined above. The patient will be advanced safely and appropriately in order for the patient to progress towards his/her prior level of function. Additional exercises will be introduced and as well as a comprehensive home exercise program upon discharge, if needed, ?to ensure carryover of functional gains achieved in the clinic. This treatment plan has been reviewed and agreement upon by the patient.
--- NOTE | 2024-08-26 16:26 | PCPTNOTE ---
Pt cancelled this weeks PT d/t out of town work schedule. Pt was issued red resistive and issued gentle strengthening ex pain free. Pt to cont stretch program. AKS
--- NOTE | 2024-09-02 08:38 | PCPTNOTE ---
Pt no showed today stating [place] is [place] and forgot to call. He stated he needs to cancel re-eval on 2024.
--- NOTE | 2024-09-12 12:40 | PCPTNOTE ---
Pt out of town. Issued strengthening ex for shoulder stabilization via [employer] photo and video. Pt to call if any questions or issues. AKS
--- NOTE | 2025-01-20 13:39 | PCPTNOTE ---
Patient last present for physical therapy on 08/22/24. Patient has not returned and is discharged for therapy at this time. Please refer to last treatment note for discharge status.
== END 2024-09-29 23:59 | disposition home or self-care (01) ==
LOC: ANHPT 07:30
PROVIDERS: PCP Internal Medicine; Visit Provider Orthopaedic Surgery
DX: M75.111 Incomplete rotator cuff tear or rupture of right shoulder, not specified as traumatic (principal)
CPT/HCPCS: 97014; 97110; 97140; 97161; G0283